=== PATIENT | female | born 1995 | race Caucasian/White ===

== ENCOUNTER 2019-12-23 06:40 | Emergency (ER) | payer MEDICAID ==
[~2019-12-23] VITALS: Ht 172.7 cm; Wt 78.0 kg
--- NOTE | 2019-12-23 06:40 | NUR ---
PT BIB SELF C/O GENERALIZED HIVES SINCE LAST NIGHT. PT IS AAOX4, NOT IN RESPIRATORY DISTRESS, V/S STABLE, KEPT RESTED AND COMFORTABLE, WILL CONTINUE TO MONITOR.
--- NOTE | 2019-12-23 06:49 | NUR ---
AT BEDSIDE FOR EVAL.
[2019-12-23] MEDS ORDERED: EPINEPHRINE (1:1000) 1 MG/ML AMPUL ONE (06:56)
[2019-12-23] MEDS ORDERED: diphenhydrAMINE HCL 50 MG/ML VIAL ONE (06:56)
[2019-12-23] MEDS ORDERED: methylPREDNISolone SOD SUCC 125 MG/2ML VIAL ONE (06:56)
[2019-12-23] MEDS ORDERED: EPINEPHRINE (1:1000) MDV 30 MG/30ML VIAL SUBCUT ONE (07:00)
[2019-12-23] MEDS ORDERED: methylPREDNISolone SOD SUCC 125 MG/2ML VIAL IV ONE (07:00)
[2019-12-23] MEDS ORDERED: diphenhydrAMINE HCL 50 MG/ML VIAL IV ONE (07:00)
[2019-12-23] MEDS ORDERED: FAMOTIDINE/PF INJ 40 MG in IV D5W 250 ML IV ONE (07:00)
--- NOTE | 2019-12-23 07:00 | NUR ---
CALLED PHARMACY FOR PEPCID IV DRIP.
--- NOTE | 2019-12-23 07:14 | NUR ---
REPORT GIVEN TO ALEX BENSON FOR PRISCA.
[2019-12-23 10:35] VITALS: BP 104/61
--- NOTE | 2019-12-23 10:36 | NUR ---
Patient discharged to home in stable condition. Written and verbal after care instructions given. Patient verbalizes understanding of instruction.IV removed. Catheter intact and site benign. Pressure and 4x4 applied to site. No bleeding noted.
[2019-12-24] MEDS ORDERED: DIPH25CA83 PO (12:12)
[2019-12-24] MEDS ORDERED: PRED20TA PO (12:12)
[2019-12-24] MEDS ORDERED: FAMO-131 PO (12:12)
[2019-12-24] MEDS ORDERED: NEXPLANON (12:14)
[2019-12-25] MEDS ORDERED: METH4TAB3 PO (10:04)
== END 2019-12-23 10:35 | disposition home or self-care (01) ==
LOC: ER 06:40
DX: L50.0 Allergic urticaria (principal); Z88.0 Allergy status to penicillin
CPT/HCPCS: 96365; 96372; 96375; 99285; J0171; J1200; J2930; J3490; J7060; J7030

== ENCOUNTER 2019-12-24 08:43 | Inpatient (IN) | payer MEDICAID ==
[~2019-12-24] VITALS: Ht 172.7 cm; Wt 79.4 kg
[2019-12-24] MEDS ORDERED: methylPREDNISolone SOD SUCC 125 MG/2ML VIAL ONE (09:26)
[2019-12-24] MEDS ORDERED: diphenhydrAMINE HCL 50 MG/ML VIAL ONE (09:26)
[2019-12-24] MEDS ORDERED: FAMOTIDINE/PF INJ 20 MG/2 ML VIAL IV ONE ×2 (09:28→09:30)
[2019-12-24] MEDS ORDERED: diphenhydrAMINE HCL 50 MG/ML VIAL IV ONE (09:30)
[2019-12-24] MEDS ORDERED: methylPREDNISolone SOD SUCC 125 MG/2ML VIAL IV ONE (09:30)
--- NOTE | 2019-12-24 09:30 | NUR ---
pt rec'd to er rash all over body hands swollen was seen sunday . iv [id number] g left ac labs and ua sent to lab
[2019-12-24 09:33] LABS: BASOPHILS % (AUTO) 0.2 % (0.0-2.0); EOSINOPHILS % (AUTO) 0.1 % (0.0-6.0); HEMATOCRIT 40 % (33-45); HEMOGLOBIN 13.5 g/dL (11.5-14.8); LYMPHOCYTES # (AUTO) 2.4 /CMM (0.8-4.8); LYMPHOCYTES % (AUTO) 18.2 % (20.0-44.0); MEAN CORPUSCULAR HGB CONC 33 g/dl (31.0-36.0); MEAN CORPUSCULAR VOLUME 86 fL (82-100); MONOCYTES # (AUTO) 0.8 /CMM (0.1-1.30); MONOCYTES % (AUTO) 6.2 % (2.0-12.0); NEUTROPHILS % (AUTO) 75.3 % (43.0-81.0); PLATELET COUNT (AUTO) 184 /CMM (150-450); RED BLOOD CELL COUNT(AUTO) 4.72 MIL/uL (4.0-5.2); WHITE BLOOD COUNT (AUTO) 13.2 K/uL (4.3-11.0)
[2019-12-24 09:46] LABS: BILIRUBIN,DIRECT 0.1 mg/dL (0.0-0.2); BILIRUBIN,TOTAL 0.5 mg/dL (0.2-1.0); CREATININE 0.8 mg/dL (0.6-1.3); POTASSIUM 3.5 mmol/L (3.5-5.1); TOTAL PROTEIN, SERUM 7.1 g/dL (6.4-8.2)
[2019-12-24] MEDS ORDERED: hydrOXYzine 10 MG TABLET ONE (10:24)
[2019-12-24] MEDS ORDERED: hydrOXYzine 10 MG TABLET PO ONE (10:30)
[2019-12-24] MEDS ORDERED: HYDROCORTISONE 1% CREAM 30 GM TUBE TP ONE (10:30)
[2019-12-24] MEDS ORDERED: CALAMINE 118 ML BOTTLE TP PRN ×2 (10:30→15:30)
--- NOTE | 2019-12-24 10:46 | NUR ---
pt was very itchy given topical meds per md order vsss
--- NOTE | 2019-12-24 10:47 | NUR ---
pt stated feeling better
[2019-12-24] MEDS ORDERED: EPINEPHRINE (1:1000) MDV 30 MG/30ML VIAL SUBCUT ONE (11:30)
--- NOTE | 2019-12-24 12:02 | NUR ---
CALLED NURSING SUP FOR TELE BED.
[2019-12-24] MEDS ORDERED: EPINEPHRINE (1:1000) 1 MG/ML AMPUL ONE (12:10)
[2019-12-24] MEDS ORDERED: PRED20TA PO (12:12)
[2019-12-24] MEDS ORDERED: DIPH25CA83 PO (12:12)
[2019-12-24] MEDS ORDERED: FAMO-131 PO (12:12)
--- NOTE | 2019-12-24 12:13 | NUR ---
pt given epi sq per md order
[2019-12-24] MEDS ORDERED: NEXPLANON (12:14)
--- NOTE | 2019-12-24 12:24 | NUR ---
pt satted feeling better talking on phone
--- NOTE | 2019-12-24 12:24 | NUR ---
NURSING SUP GAVE TELE BED 311-2. HAMLET IS THE NURSE.
--- NOTE | 2019-12-24 12:37 | NUR ---
CALLED BRAND[facility]OS FOR CONSULT.
--- NOTE | 2019-12-24 12:47 | NUR ---
PAGED [facility].
--- NOTE | 2019-12-24 13:19 | NUR ---
pt stable for transfer
[2019-12-24 13:30] VITALS: BP 122/70
--- NOTE | 2019-12-24 13:30 | NUR ---
RN ADMITTING NOTE Received bedside report. Patient ambulated to bed, A/O x4, anxious, RR 20, HR 104, T98.6F, BP 122/70 O2 sat 97% on RA. Patient has no complaints of pain at this time. IV line in the LAC #20g is clean and intact s/l.Skin assessed, photos taken and placed in chart. Bed is in lowest position, side rails x3 in upright position, call light is within reach and patient is aware of how to call for assistance when needed. Will continue with plan of care.
[2019-12-24] MEDS ORDERED: IV 1/2NS 1000 ML 1,000 ML IV PRN (15:10)
[2019-12-24] MEDS ORDERED: MAG HYDROX/AL HYDROX/SIMETH 30 ML UDC PO PRN (15:30)
[2019-12-24] MEDS ORDERED: ZOLPIDEM TARTRATE 5 MG TABLET PO PRN (15:30)
[2019-12-24] MEDS ORDERED: ACETAMINOPHEN 325 MG TABLET PO PRN (15:30)
[2019-12-24] MEDS ORDERED: HYDROCODONE/APAP 5/325MG 1 EACH TABLET PO PRN (15:30)
[2019-12-24] MEDS ORDERED: MAGNESIUM HYDROXIDE 30 ML UDC PO PRN (15:30)
[2019-12-24] MEDS ORDERED: ONDANSETRON HCL/PF 4 MG/2 ML VIAL IVP PRN (15:30)
[2019-12-24] MEDS ORDERED: Z GUARD REMEDY 2 OZ OINT TP PRN (15:30)
[2019-12-24] MEDS ORDERED: diphenhydrAMINE HCL 50 MG/ML VIAL IV PRN (15:30)
[2019-12-24 16:00] VITALS: BP 115/61
[2019-12-24] MEDS: methylPREDNISolone SOD SUCC 125 MG/2ML VIAL IV SCH (16:32)
--- NOTE | 2019-12-24 18:00 | NUR ---
RN NOTE MD at the bedside discussing POC with the patient.
--- NOTE | 2019-12-24 19:54 | NUR ---
RN CLOSING NOTE Patient is resting in bed, A/O x4, showing no signs of acute distress or SOB. IV line in the LAC #20g is clean and intact. All patient needs and concerns addressed. Bed is in lowest position, side rails x3 in upright position, call light is within reach and patient is aware of how to call for assistance when needed. Will endorse to mobile developer..
[2019-12-24 20:00] VITALS: BP 123/75
[2019-12-24] MEDS: FAMOTIDINE/PF INJ 20 MG/2 ML VIAL IV SCH (21:08)
[2019-12-24] MEDS: hydrOXYzine 10 MG TABLET PO PRN (21:41)
--- NOTE | 2019-12-24 23:00 | NUR ---
Patient A&O x4. No s/s of distress. No s/s of pain or distress. Patient stated she is itchy. Medications given. Breathing even and nonlabored. Call light in reach. Side railed up. Will continue to monitor patient throughout shift.
[2019-12-25] VITALS: BP 127/67
[2019-12-25 04:38] VITALS: BP 125/72
--- NOTE | 2019-12-25 05:29 | NUR ---
Patient is sleep. Call light in reach. Side rails up. Bed in lowest position. Will give report to day shift nurse.
[2019-12-25 06:27] LABS: BASOPHILS % (AUTO) 0.1 % (0.0-2.0); HEMATOCRIT 38 % (33-45); HEMOGLOBIN 12.7 g/dL (11.5-14.8); LYMPHOCYTES # (AUTO) 1.8 /CMM (0.8-4.8); LYMPHOCYTES % (AUTO) 10.9 % (20.0-44.0); MEAN CORPUSCULAR HGB CONC 33 g/dl (31.0-36.0); MEAN CORPUSCULAR VOLUME 86 fL (82-100); MONOCYTES % (AUTO) 6.3 % (2.0-12.0); NEUTROPHILS # (AUTO) 13.8 /CMM (1.8-8.9); NEUTROPHILS % (AUTO) 82.7 % (43.0-81.0); PLATELET COUNT (AUTO) 195 /CMM (150-450); RED BLOOD CELL COUNT(AUTO) 4.47 MIL/uL (4.0-5.2); WHITE BLOOD COUNT (AUTO) 16.7 K/uL (4.3-11.0)
[2019-12-25 07:02] LABS: CALCIUM, SERUM 8.7 mg/dL (8.5-10.1); CREATININE 0.7 mg/dL (0.6-1.3); MAGNESIUM 2.4 mg/dL (1.8-2.4); PHOSPHORUS 3.1 mg/dL (2.5-4.9)
--- NOTE | 2019-12-25 07:05 | NUR ---
TMD TEACHER ASSISTANT OPENING NOTES RECEIVED PT IN BED AWAKE AT THIS TIME WITH HOB ELEVATED. A/O x4. PT ON TELEMETRY CIRCULATION CLERK SR 86. PT APPEARS COMFORTABLE WITH NO S/S OF ANY ACUTE DISTRESS. BREATHING EVEN AND UNLABORED. PT IS ABLE TO MAKE NEEDS KNOWN. PT DENIES PAIN AT THIS TIME. IV ACCESS IN LAC G#20, INTACT AND PATENT. BED IN LOWEST LOCKED POSITION, SIDE RAILS UP X 2, CALL LIGHT WITHIN REACH. WILL CONTINUE TO PROVIDE CARE AND MONITOR.
[2019-12-25] MEDS ORDERED: PANTOPRAZOLE 40 MG TABLET.DR PO SCH (07:30)
[2019-12-25 08:00] VITALS: BP 141/55
[2019-12-25] MEDS: FAMOTIDINE/PF INJ 20 MG/2 ML VIAL IV SCH (09:35)
[2019-12-25] MEDS: methylPREDNISolone SOD SUCC 125 MG/2ML VIAL IV SCH ×2 (09:36→13:25)
[2019-12-25] MEDS ORDERED: METH4TAB3 PO (10:04)
[2019-12-25] MEDS: hydrOXYzine 10 MG TABLET PO PRN (10:05)
--- NOTE | 2019-12-25 16:11 | NUR ---
DISCHARGED PT HOME WITH STABLE V/S.ACCOMPANIED BY .IV H/L REMOVED TO [facility] WITH NO BLEEDING NOTED.DENIES ANY PAIN OR DISTRESS.
== END 2019-12-25 16:00 | disposition home or self-care (01) | DRG 143 ==
LOC: ER 08:43 → TELE 12:27
PROVIDERS: ADMIT Student in an Organized Health Care Education/Training Program; ATTEND Internal Medicine
DX: J39.8 Other specified diseases of upper respiratory tract (principal); A04.9 Bacterial intestinal infection, unspecified; D72.829 Elevated white blood cell count, unspecified; T36.0X5A Adverse effect of penicillins, initial encounter; K58.9 Irritable bowel syndrome, unspecified; Y92.009 Unspecified place in unspecified non-institutional (private) residence as the place of occurrence of the external cause; T38.0X5A Adverse effect of glucocorticoids and synthetic analogues, initial encounter; Y92.9 Unspecified place or not applicable
CPT/HCPCS: 36415; 70360-TC; 71045-TC; 80048-TC; 80076-TC; 83735-TC; 84100-TC; 84703-TC; 85025-TC; 85652-TC; 87081-TC; G0378; J0171; J1200; J2930; J3490; J7030; J7060; Q0177